=== PATIENT | male | born 1950 | race Caucasian/White ===

== ENCOUNTER → 2016-09-15 | Outpatient (CLI) | payer MEDICARE, OTHER | END | disposition home or self-care (01) | LOC: LAB.O 15:29 | PROVIDERS: ATTEND Urology | DX: R97.20 Elevated prostate specific antigen [PSA] (principal) ==

== ENCOUNTER → 2016-10-22 | Outpatient (CLI) | payer MEDICARE, OTHER | END | disposition home or self-care (01) | LOC: GT 07:24 | PROVIDERS: ATTEND Family Medicine | DX: I25.10 Atherosclerotic heart disease of native coronary artery without angina pectoris (principal); I10 Essential (primary) hypertension; E11.9 Type 2 diabetes mellitus without complications; E78.00 Pure hypercholesterolemia, unspecified ==

== ENCOUNTER → 2017-01-26 | Outpatient (CLI) | payer MEDICARE, OTHER | END | disposition home or self-care (01) | LOC: GT 07:40 | PROVIDERS: ATTEND Family Medicine | DX: I25.9 Chronic ischemic heart disease, unspecified (principal); E78.00 Pure hypercholesterolemia, unspecified; E11.9 Type 2 diabetes mellitus without complications; E63.8 Other specified nutritional deficiencies; I10 Essential (primary) hypertension; Z79.899 Other long term (current) drug therapy | CPT/HCPCS: 36415; 80053; 80061; 80162; 83036; 85025; P9603 ==

== ENCOUNTER → 2017-04-17 | Outpatient (CLI) | payer MEDICARE, OTHER | END | disposition home or self-care (01) | LOC: GT 10:10 | PROVIDERS: ATTEND Family Medicine | DX: R30.0 Dysuria (principal) ==

== ENCOUNTER → 2017-04-20 | Outpatient (CLI) | payer MEDICARE, OTHER | END | disposition home or self-care (01) | LOC: GT 06:11 | PROVIDERS: ATTEND Family Medicine | DX: I25.9 Chronic ischemic heart disease, unspecified (principal); E11.9 Type 2 diabetes mellitus without complications; I10 Essential (primary) hypertension; I25.10 Atherosclerotic heart disease of native coronary artery without angina pectoris ==

== ENCOUNTER → 2017-07-20 | Outpatient (CLI) | payer MEDICARE, OTHER | END | disposition home or self-care (01) | LOC: GT 06:18 | PROVIDERS: ATTEND Family Medicine | DX: I48.91 Unspecified atrial fibrillation (principal); E11.9 Type 2 diabetes mellitus without complications; R13.0 Aphagia ==

== ENCOUNTER → 2017-09-28 | Outpatient (CLI) | payer MEDICARE, OTHER | LOC: LAB.O 14:00 | PROVIDERS: ATTEND Urology | DX: R97.20 Elevated prostate specific antigen [PSA] (principal) ==

== ENCOUNTER → 2017-10-19 | Outpatient (CLI) | payer MEDICARE, MEDICAID | LOC: GT 06:48 | PROVIDERS: ATTEND Family Medicine | DX: E11.9 Type 2 diabetes mellitus without complications (principal); I25.10 Atherosclerotic heart disease of native coronary artery without angina pectoris; I25.9 Chronic ischemic heart disease, unspecified; I10 Essential (primary) hypertension; E63.8 Other specified nutritional deficiencies; E78.00 Pure hypercholesterolemia, unspecified ==

== ENCOUNTER → 2018-05-31 | Outpatient (CLI) | payer MEDICARE, MEDICAID | LOC: GT 11:08 | PROVIDERS: ATTEND Family Medicine | DX: N39.0 Urinary tract infection, site not specified (principal) ==

== ENCOUNTER 2018-09-23 23:05 | Emergency (ER) | payer MEDICARE, MEDICAID ==
[2018-09-23] MEDS ORDERED: HYDROcodone 5MG/APAP 325MG 1 EA TAB PO ONE (23:19)
[2018-09-23] MEDS ORDERED: LORazepam 0.5 MG TAB PO ONE (23:20)
[2018-09-23] MEDS ORDERED: ALUMINUM & MAGNESIUM HYDROXIDE 30 ML UD PO ONE (23:23)
[2018-09-23 23:57] VITALS: TEMP 98.8
[2018-09-24] MEDS ORDERED: MAGNESIUM SULFATE PREMIX 4GM 50 ML IVPB ONE (00:01)
[2018-09-24] MEDS ORDERED: SODIUM CHLORIDE 0.9% 1000ML 1,000 ML IVS ONE (00:01)
[2018-09-24] MEDS ORDERED: MAGNESIUM SULFATE PREMIX 4GM 4 GM in PREMIX BAG 1 BAG IVPB ONE (00:01)
--- NOTE | 2018-09-24 00:24 | RAD ---
EXAM: TWO VIEW SINGLE and UPRIGHT ABDOMEN AND PA CHEST RADIOGRAPHS CLINICAL INDICATION: Anxiety. Abdominal pain. Altered mental status. COMPARISON: Compared to the chest radiograph of October 18, 2014. FINDINGS: Unchanged sequela of remote heart surgery with intact sternal wire sutures. Cardiac size remains normal. New bibasilar bronchial wall thickening suspicious for bronchitis versus reactive airways disease. No pleural effusions. Partially visualized splenic capsular hematoma suggesting remote splenic injury. No pneumothorax. Large amount stool throughout the colon extending into the rectum. Suspect constipation. No mechanical bowel obstruction or extraluminal bowel gas. Partially visualized severe degenerative disease in the lower lumbosacral spine. IMPRESSION: 1. Suspect constipation. No mechanical bowel obstruction or extraluminal bowel gas. 2. New bibasilar bronchial wall thickening suspicious for bronchitis versus reactive airways disease. No focal pneumonia. Lungs are otherwise clear. 3. No pneumothorax. Electronically signed by: Mukesh Gerard MD 09/24/2018 12:21 AM CDT
[2018-09-24] MEDS ORDERED: MAGNESIUM HYDROXIDE 30 ML UD PO ONE (01:50)
--- NOTE | 2018-09-24 01:53 | ED.PDOC ---
History of Present Illness - General Chief Complaint: General Time Seen by Provider: 09/23/18 23:06 Source: patient, family Exam Limitations: clinical condition - History of Present Illness Initial Comments: The patient is a 67-year-old male presenting to the emergency room secondary to increased agitation tonight. The patient has fairly advanced dementia and is not able to communicate very well. The patient is significantly agitated yelling out and not making much sense upon arrival. He is not combative but he is unable to sit still and calm down. He was sent up for a report of chest pain however he is not reporting chest pain in any way. He has recently had a change in his psychiatric medications. His daughter reports that he has had a significant step off in his dementia since . I see no evidence of trauma about the patient. He is cooperative with the exam. His answers, even yes no answers to simple review of systems questions are unreliable. Timing/Duration: unsure Severity: moderate Improving Factors: nothing Worsening Factors: nothing Allergies/Adverse Reactions: Allergies Penicillins Allergy (Unknown, Verified 12/15/15 08:32) Home Medications: Ambulatory Orders Aspirin 81 mg PO DAILY #0 09/08/12 Digoxin 0.25 mg PO DAILY #0 09/08/12 Metoprolol Tartrate 25 mg PO DAILY 10/08/14 Omeprazole [Prilosec] 20 mg PO BEDTIME 10/08/14 Simvastatin 40 mg PO BEDTIME 10/08/14 Alprazolam [Xanax] 1 mg PO DAILY PRN #7 tab 09/24/18 Famotidine [Pepcid Tab] 20 mg PO BID #60 tab 09/24/18 Magnesium Oxide 400 mg PO DAILY #30 cap 09/24/18 Review of Systems - Review of Systems Review of Systems: 09/24/18 01:53 unable to reliably obtain a review of systems secondary to dementia Past Medical History (General) - Patient Medical History Hx Seizures: No Hx Stroke: No Hx Dementia: No Hx Asthma: Yes - as a child Hx of COPD: No Hx Cardiac Disorders: Yes - bipass Hx Congestive Heart Failure: Yes Hx Pacemaker: No Hx Hypertension: Yes Hx Thyroid Disease: No Hx Diabetes: Yes Hx Gastroesophageal Reflux: Yes Hx Renal Disease: No Hx Cancer: No Hx of HIV: No Hx Hepatitis C: No Hx MRSA: No - Vaccination History Hx Tetanus, Diphtheria Vaccination: No Hx Influenza Vaccination: Yes Hx Pneumococcal Vaccination: Yes Immunizations Up to Date: No - Social History Hx Tobacco Use: No Hx Chewing Tobacco Use: No Hx Alcohol Use: No Hx Substance Use: No Hx Substance Use Treatment: No Hx Depression: No Feels Threatened In Home Enviroment: No Feels Threatened In a Relationship: No Hx Physical Abuse: No Hx Emotional Abuse: No - Activities of Daily Living Half-Way/Assisted Living (if applicable):: [facility] Agency (if applicable):: None - Female History Patient is a Female of Child Bearing Age (10 -59 yrs old): No Patient : No - Triage Comment ED Triage Comment: pt has clear speech however is repeating same phrase over "where am i" over and over , pt is unable to conversate and make needs known, family at bedside providing information, and paper work sent from [facility] Family Medical History - Family History Father Family History: Unknown Physical Exam - Physical Exam General Appearance: Alert, Anxious Eye Exam: bilateral normal Ears, Nose, Throat: hearing grossly normal, other - fairly dry mucous membranes Neck: full range of motion, supple Respiratory: lungs clear, normal breath sounds, no respiratory distress, no accessory muscle use Cardiovascular/Chest: normal peripheral pulses, no edema, other - regular rate Peripheral Pulses: radial,right: 2+, radial,left: 2+, dorsalis pedis,right: 2+, dorsalis pedis,left: 2+ Gastrointestinal/Abdominal: non tender, soft Rectal Exam: deferred Back Exam: no CVA tenderness, no vertebral tenderness Extremity: normal range of motion, non-tender, normal inspection, no pedal edema, normal capillary refill 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 He seems to know that he is in a hospital. He is not sure why he is here. Skin Exam: pallor Comments: Vital Signs - 24 hr 09/23/18 09/23/18 23:55 23:56 Temperature 98.8 F Pulse Rate [ 100 H 74 monitor] Respiratory 20 18 Rate Blood Pressure 109/79 [Left Arm] O2 Sat by Pulse 96 Oximetry Progress - Progress Progress: 09/24/18 01:56 the patient is a 67-year-old male presenting to the emergency room essentially due to agitation. The patient was found to have some moderate dehydration and was given a liter of IV fluids. Increase fluid intake needs to be encouraged at the care center given his dementia progression. Additionally he has significant hypomagnesemia. He will be started on magnesium oxide twice daily. He also has constipation which may be giving him pain. He was given a dose of milk of magnesia here. This does need to be followed carefully at the custodial and increasing hydration may improve this as well. He will be written for some Xanax for as needed use for severe agitation at the custodial. Additionally his new psychiatric medication is often associated with gastritis and esophagitis. For this reason I'm going to write the patient for 1 month worth of famotidine to be used twice daily. He does need to follow up with his primary care doctor in the next week. He does appear to have significant DJD of the lumbar spine which may be causing him some long-term discomfort. This can be followed up with his primary care doctor. ER warnings were given for any worsening. - Results/Orders Results/Orders: Acute abdominal series shows no definitive pulmonary infiltrate. Abdominal x- ray shows significant constipation. EKG STAT EKG shows normal sinus rhythm with intermittent PVCs. There is some right axis deviation. Difficult to assess otherwise due to baseline tremor. Laboratory Results - last 24 hr 09/23/18 09/23/18 09/23/18 23:30 23:30 23:30 WBC 7.2 RBC 4.31 L Hgb 12.7 L Hct 37.7 L MCV 87.5 MCH 29.4 MCHC 33.6 RDW 13.3 Plt Count 214 MPV 7.5 Absolute Neuts (auto) 3.60 Absolute Lymphs (auto) 2.20 Absolute Monos (auto) 0.90 H Absolute Eos (auto) 0.40 Absolute Basos (auto) 0.10 Neutrophils % 50.3 Lymphocytes % 30.9 Monocytes % 12.1 H Eosinophils % 5.8 H Basophils % 0.9 Sodium 137 Potassium 4.6 Chloride 100 L Carbon Dioxide 28 Anion Gap 13.6 BUN 16 Creatinine 0.90 BUN/Creatinine Ratio 17.8 Random Glucose 211 H Serum Osmolality 281.3 Lactic Acid 3.2 H* Calcium 8.7 Magnesium 1.3 L Total Bilirubin 0.4 AST 28 ALT 26 Alkaline Phosphatase 117 Creatine Kinase 60 CK-MB (CK-2) 2.8 Troponin I 0.03 B-Natriuretic Peptide 35.8 Serum Total Protein 7.4 Albumin 3.4 Globulin 4.0 H Albumin/Globulin Ratio 0.9 L Amylase 86 Lipase 31 Departure - Departure Clinical Impression: Hypomagnesemia, Dehydration, Psychomotor agitation Constipation Qualifiers: Constipation type: unspecified constipation type Qualified Code(s): K59.00 - Constipation, unspecified Disposition: Discharge to SNF Condition: Fair Departure Forms: ED Discharge - Pt. Copy, Patient Portal Self Enrollment Instructions: Dehydration, Adult (DC), Constipation, Adult (DC) Diet: regular diet - high-fiber Activity: increase activity as tolerated Referrals: Rivera Nagy MD [Primary Care Provider] - 1-2 Weeks Prescriptions: Alprazolam [Xanax] 1 mg PO DAILY PRN #7 tab PRN Reason: Anxiety Famotidine [Pepcid Tab] 20 mg PO BID #60 tab Magnesium Oxide 400 mg PO DAILY #30 cap Home Medications: Ambulatory Orders Aspirin 81 mg PO DAILY #0 09/08/12 Digoxin 0.25 mg PO DAILY #0 09/08/12 Metoprolol Tartrate 25 mg PO DAILY 10/08/14 Omeprazole [Prilosec] 20 mg PO BEDTIME 10/08/14 Simvastatin 40 mg PO BEDTIME 10/08/14 Alprazolam [Xanax] 1 mg PO DAILY PRN #7 tab 09/24/18 Famotidine [Pepcid Tab] 20 mg PO BID #60 tab 09/24/18 Magnesium Oxide 400 mg PO DAILY #30 cap 09/24/18 Additional Instructions: the patient is a 67-year-old male presenting to the emergency room essentially due to agitation. The patient was found to have some moderate dehydration and was given a liter of IV fluids. Increase fluid intake needs to be encouraged at the care center given his dementia progression. Additionally he has significant hypomagnesemia. He will be started on magnesium oxide twice daily. He also has constipation which may be giving him pain. He was given a dose of milk of magnesia here. This does need to be followed carefully at the custodial and increasing hydration may improve this as well. He will be written for some Xanax for as needed use for severe agitation at the custodial. Additionally his new psychiatric medication is often associated with gastritis and esophagitis. For this reason I'm going to write the patient for 1 month worth of famotidine to be used twice daily. He does need to follow up with his primary care doctor in the next week. He does appear to have significant DJD of the lumbar spine which may be causing him some long-term d iscomfort. This can be followed up with his primary care doctor. ER warnings were given for any worsening.
[2018-09-24 01:55] VITALS: BP 116/75; O2SAT 94
== END 2018-09-24 02:15 ==
LOC: ER 23:05
DX: R45.1 Restlessness and agitation (principal); E86.0 Dehydration; K59.00 Constipation, unspecified; E83.42 Hypomagnesemia; F03.90 Unspecified dementia, unspecified severity, without behavioral disturbance, psychotic disturbance, mood disturbance, and anxiety; I50.9 Heart failure, unspecified; I11.0 Hypertensive heart disease with heart failure; E11.9 Type 2 diabetes mellitus without complications; K21.9 Gastro-esophageal reflux disease without esophagitis; Z95.1 Presence of aortocoronary bypass graft; Z79.899 Other long term (current) drug therapy; Z88.0 Allergy status to penicillin
CPT/HCPCS: 36415; 74019; 80053; 82150; 82550; 82553; 83605; 83690; 83735; 83880; 84484; 85025; 93005; J3475; J7030

== ENCOUNTER 2018-10-13 09:34 | Emergency (ER) | payer MEDICARE, OTHER ==
[2018-10-13] MEDS ORDERED: SODIUM CHLORIDE 0.9% (FLUSH) 10 ML SYG IV PRN (10:03)
--- NOTE | 2018-10-13 10:54 | RAD ---
EXAM DESCRIPTION: Chest,1 View CLINICAL HISTORY: 67 years Male, AMS COMPARISON: 10/08/2014 IMPRESSION: The heart is borderline enlarged, without failure. Median sternotomy wires and changes of prior cardiac surgery again demonstrated. There is no airspace consolidation, pleural effusion, or pneumothorax. No acute osseous abnormality. Electronically signed by: Kristofer Jiang MD 10/13/2018 10:51 AM CDT
--- NOTE | 2018-10-13 11:01 | CT ---
EXAM DESCRIPTION: Head. CT head without contrast. CLINICAL HISTORY: AMS COMPARISON: None available TECHNIQUE: Multiple axial images of the head without contrast. Multiplanar reformatted images. This exam was performed according to our departmental dose-optimization program, which includes automated exposure control, adjustment of the mA and/or kV according to patient size and/or use of iterative reconstruction technique. FINDINGS: There is no CT evidence of intracranial hemorrhage, mass effect, or large territory infarction. Mild generalized volume loss. Mild patchy supratentorial white matter hypodensities. There are no abnormal extra-axial fluid collections. Calcific plaque in the visualized arteries. There is no acute calvarial defect. The visualized paranasal sinuses and the mastoids are clear. IMPRESSION: 1. No CT evidence of an acute intracranial abnormality. If there is concern for an acute or subacute infarct, consider follow-up MRI. 2. Mild senescent changes. Electronically signed by: Kristofer Jiang MD 10/13/2018 10:58 AM CDT
--- NOTE | 2018-10-13 11:29 | ED.PDOC ---
History of Present Illness - General Chief Complaint: Neuro Symptoms/Deficits Stated Complaint: WEAKNESS Time Seen by Provider: 10/13/18 09:36 Source: family, [place] [facility] records - History of Present Illness Initial Comments: PT SENT IN FROM HALF-WAY DUE TO DECLINING MENTAL STATUS OVER THE PAST FEW WEEKS. PT HAS HAD DECREASED PO INTAKE AND URINARY INCONTINENCE AND HAS ALSO BEEN MORE UNSTEADY WHILE AMBULATING. DAUGHTER AT BEDSIDE STATES THAT PT WAS RECENTLY DIAGNOSED WITH DEMENTIA AND APPEARS TO BE AT BASELINE MENTAL STATUS. HPI AND ROS LIMITED DUE TO PTS MENTAL FUNCTIONING. Severity: moderate Improving Factors: nothing Worsening Factors: nothing Associated Symptoms: loss of appetite Allergies/Adverse Reactions: Allergies Penicillins Allergy (Unknown, Verified 12/15/15 08:32) Home Medications: Ambulatory Orders Aspirin 81 mg PO DAILY #0 09/08/12 Digoxin 0.25 mg PO DAILY #0 09/08/12 Metoprolol Tartrate 25 mg PO DAILY 10/08/14 Omeprazole [Prilosec] 20 mg PO BEDTIME 10/08/14 Simvastatin 40 mg PO BEDTIME 10/08/14 Alprazolam [Xanax] 1 mg PO DAILY PRN #7 tab 09/24/18 Famotidine [Pepcid Tab] 20 mg PO BID #60 tab 09/24/18 Magnesium Oxide 400 mg PO DAILY #30 cap 09/24/18 Review of Systems - Review of Systems Constitutional: Denies: chills, fever EENTM: States: see HPI Respiratory: Denies: cough, short of breath Cardiology: States: see HPI. Denies: syncope Gastrointestinal/Abdominal: States: see HPI. Denies: diarrhea, vomiting Genitourinary: States: see HPI, other - INCONTINENCE Musculoskeletal: States: see HPI. Denies: joint swelling Skin: Denies: change in color, dryness Neurological: States: see HPI Endocrine: States: see HPI Hematologic/Lymphatic: States: see HPI Past Medical History (General) - Patient Medical History Hx Seizures: No Hx Stroke: No Hx Dementia: No Hx Asthma: Yes - as a child Hx of COPD: No Hx Cardiac Disorders: Yes - bipass Hx Congestive Heart Failure: Yes Hx Pacemaker: No Hx Hypertension: Yes Hx Thyroid Disease: No Hx Diabetes: Yes Hx Gastroesophageal Reflux: Yes Hx Renal Disease: No Hx Cancer: No Hx of HIV: No Hx Hepatitis C: No Hx MRSA: No - Vaccination History Hx Tetanus, Diphtheria Vaccination: No Hx Influenza Vaccination: Yes Hx Pneumococcal Vaccination: Yes - Social History Hx Tobacco Use: No Hx Chewing Tobacco Use: No Hx Alcohol Use: No Hx Substance Use: No Hx Substance Use Treatment: No Hx Depression: No Hx Physical Abuse: No Hx Emotional Abuse: No - Female History Patient : No Family Medical History - Family History Father Family History: Unknown Physical Exam - Physical Exam General Appearance: Alert, No apparent distress, Well Groomed, Well Hydrated, W ell Nourished Eye Exam: bilateral normal Ears, Nose, Throat: other - HEARING IMPAIRED Neck: non-tender, full range of motion, supple Respiratory: lungs clear, normal breath sounds, no respiratory distress Cardiovascular/Chest: regular rate, rhythm, no murmur Gastrointestinal/Abdominal: non tender, soft Back Exam: normal inspection, no CVA tenderness Neurologic: alert, other - APPEARS CONFUSED, ALTHOUGH DIFFICULT TO ASSESS DUE TO HEARING IMPAIRMENT Skin Exam: normal color, warm/dry Progress - Progress Progress: 10/13/18 13:27 PT RESTING COMFORTABLY, LABS AND DIAGNOSTICS DISCUSSED WITH FAMILY AT BESIDE. DISCUSSED PLAN FOR TRANSFER FOR CARDIOLOGY CONSULTATION. - Results/Orders Results/Orders: Laboratory Tests 10/13/18 10/13/18 10/13/18 10:57 10:57 11:15 WBC 8.4 RBC 4.93 Hgb 14.4 Hct 42.1 MCV 85.4 MCH 29.2 MCHC 34.2 RDW 13.4 Plt Count 187 MPV 7.7 Absolute Neuts (auto) 6.70 Absolute Lymphs (auto) 0.60 L Absolute Monos (auto) 0.80 Absolute Eos (auto) 0.30 Absolute Basos (auto) 0.10 Neutrophils % 78.8 H Lymphocytes % 7.0 L Monocytes % 9.5 H Eosinophils % 3.1 Basophils % 1.6 PT 13.6 H INR 1.36 H PTT (SP) 30.1 Sodium 126 L Potassium 4.0 Chloride 88 L Carbon Dioxide 22 Anion Gap 20.0 H BUN 17 Creatinine 1.06 BUN/Creatinine Ratio 16.0 Random Glucose 208 H Serum Osmolality 261.0 L Calcium 9.0 Total Bilirubin 0.4 AST 39 ALT 24 Alkaline Phosphatase 109 Creatine Kinase 198 H CK-MB (CK-2) 4.8 H* CK-MB (CK-2) % 2.42 Troponin I < 0.02 Serum Total Protein 7.7 Albumin 3.8 Globulin 3.9 H Albumin/Globulin Ratio 1.0 L Urine Color Urine Appearance Urine pH Ur Specific [place] Urine Protein Urine Glucose (UA) Urine Ketones Urine Blood Urine Nitrite Urine Bilirubin Urine Urobilinogen Ur Leukocyte Esterase Urine RBC Urine WBC Ur Epithelial Cells Urine Bacteria 10/13/18 11:45 WBC RBC Hgb Hct MCV MCH MCHC RDW Plt Count MPV Absolute Neuts (auto) Absolute Lymphs (auto) Absolute Monos (auto) Absolute Eos (auto) Absolute Basos (auto) Neutrophils % Lymphocytes % Monocytes % Eosinophils % Basophils % PT INR PTT (SP) Sodium Potassium Chloride Carbon Dioxide Anion Gap BUN Creatinine BUN/Creatinine Ratio Random Glucose Serum Osmolality Calcium Total Bilirubin AST ALT Alkaline Phosphatase Creatine Kinase CK-MB (CK-2) CK-MB (CK-2) % Troponin I Serum Total Protein Albumin Globulin Albumin/Globulin Ratio Urine Color Yellow Urine Appearance Clear Urine pH 6.5 Ur Specific [place] 1.015 Urine Protein 100 H Urine Glucose (UA) Negative Urine Ketones Negative Urine Blood Negative Urine Nitrite Negative Urine Bilirubin Negative Urine Urobilinogen 1.0 Ur Leukocyte Esterase Negative Urine RBC 0 Urine WBC 0 Ur Epithelial Cells 0 Urine Bacteria 0 - EKG/XRAY/CT EKG: Sinus - @68BPM, 2ND DEGREE AV BLOCK, MOBITZ 1, RAD, GOOD R WAVE PROGRESSION, no ST T wave changes, Changed from - AV BLOCK IS NEW WHEN COMPARED TO PREVIOUS FROM 09/23/18 Departure - Departure Clinical Impression: Hyponatremia, Second degree AV block, Mobitz type I, Dementia Time of Disposition: 13:29 Disposition: Transfer to Hospital Condition: Fair Departure Forms: ED Discharge - Pt. Copy, Patient Portal Self Enrollment Referrals: Rivera Nagy MD [Primary Care Provider] - 1-2 Weeks Home Medications: Ambulatory Orders Aspirin 81 mg PO DAILY #0 09/08/12 Digoxin 0.25 mg PO DAILY #0 09/08/12 Metoprolol Tartrate 25 mg PO DAILY 10/08/14 Omeprazole [Prilosec] 20 mg PO BEDTIME 10/08/14 Simvastatin 40 mg PO BEDTIME 10/08/14 Alprazolam [Xanax] 1 mg PO DAILY PRN #7 tab 09/24/18 Famotidine [Pepcid Tab] 20 mg PO BID #60 tab 09/24/18 Magnesium Oxide 400 mg PO DAILY #30 cap 09/24/18 Transfer to Outside Facility - Transfer Information Accepting Provider:: DR. LARA Accepting Facility: [facility] Reason for Transfer: required specialist not available - CARDIOLOGY
[2018-10-13] MEDS ORDERED: SODIUM CHLORIDE 0.9% 1000ML 1,000 ML IVS ONE (11:48)
[2018-10-13 18:46] VITALS: BP 154/77; TEMP 98.5; O2SAT 95
== END 2018-10-13 14:20 | disposition short-term general hospital (02) ==
LOC: ER 09:34
DX: I44.1 Atrioventricular block, second degree (principal); E87.1 Hypo-osmolality and hyponatremia; F03.90 Unspecified dementia, unspecified severity, without behavioral disturbance, psychotic disturbance, mood disturbance, and anxiety; I50.9 Heart failure, unspecified; I11.0 Hypertensive heart disease with heart failure; E11.9 Type 2 diabetes mellitus without complications; K21.9 Gastro-esophageal reflux disease without esophagitis; Z79.82 Long term (current) use of aspirin; Z79.899 Other long term (current) drug therapy; Z88.0 Allergy status to penicillin
CPT/HCPCS: 36415; 70450; 71045; 80053; 81001; 82550; 82553; 84484; 85025; 85610; 85730; 93005; J7030